=== PATIENT | female | born 1995 | race Caucasian/White ===

== ENCOUNTER 2017-04-07 19:24 | Inpatient (IN) | payer BC, OTHER ==
[2017-04-07] MEDS ORDERED: Carboprost Tromethamine 250 MCG/1 ML Amp IM PRN (20:27)
[2017-04-07] MEDS ORDERED: Sodium Chloride 0.9% 10 ML Syringe FLUSH PRN (20:27)
[2017-04-07] MEDS ORDERED: Misoprostol 200 MCG Tab PO PRN (20:27)
[2017-04-07] MEDS ORDERED: Methylergonovine 0.2 MG/1 ML Amp IM PRN (20:27)
[2017-04-07] MEDS ORDERED: Nalbuphine 10 MG/1 ML Vial IVPUSH PRN (20:27)
[2017-04-07] MEDS ORDERED: Sodium Chloride 0.9% 2.5 ML Syringe FLUSH PRN (20:27)
[2017-04-07] MEDS ORDERED: Water For Irrigation,Sterile 1,000 ML Container IRR PRN (20:27)
[2017-04-07] MEDS ORDERED: Lidocaine 1% 50 ML MDV INJECT PRN (20:27)
[2017-04-07] MEDS ORDERED: Oxytocin/Lactated Ringers 30 UNIT/500 ML BAG IV SCH (20:30)
[2017-04-07] MEDS ORDERED: Ampicillin 2 GM in Sodium Chloride 0.9% 100 ML IV ONE (21:00)
[2017-04-07] MEDS: Lactated Ringers 1,000 ML IV SCH (21:17)
[2017-04-07] MEDS ORDERED: Misoprostol 25 MCG (1/4 of 100 MCG) Tab VAG PRN (22:24)
[2017-04-07] MEDS ORDERED: Terbutaline 1 MG/ML SDV SUBCUT PRN (22:24)
[2017-04-07] MEDS ORDERED: Misoprostol 25 MCG (1/4 of 100 MCG) Tab VAG SCH (22:30)
[2017-04-08] MEDS: Ampicillin 1 GM in Sodium Chloride 0.9% 50 ML IV SCH ×4 (00:48→13:09)
[2017-04-08] MEDS: Butorphanol 1 MG/ML SDV IVPUSH PRN ×2 (05:19→07:40)
[2017-04-08] MEDS: Lactated Ringers 1,000 ML IV SCH ×3 (08:06→10:42)
[2017-04-08] MEDS ORDERED: fentaNYL 100 MCG/2 ML SDV ONE (09:34)
[2017-04-08] MEDS ORDERED: Ropivacaine 0.2% 2 MG/ML 20 ML SDV ONE (09:35)
--- NOTE | 2017-04-08 10:30 | PCM.PREANE ---
Preanesthetic Assessment - Anesthesia/Transfusion/Family Hx Anesthesia History: Prior Anesthesia Without Reaction Family History of Anesthesia Reaction: No Transfusion History: No Prior Transfusion(s) - Review of Systems General: No Symptoms Pulmonary: No Symptoms Cardiovascular: No Symptoms Gastrointestinal: No symptoms Neurological: No Symptoms Other: Reports: None - Physical Assessment NPO Status Date: 04/08/17 NPO Status Time: 10:20 (cl liquids) Height: 1.7 m Weight: 82.554 kg ASA Class: 2 Mental Status: Alert & Oriented x3 Airway Class: Mallampati = 2 Dentition: Reports: Normal Dentition Thyro-Mental Finger Breadths: 3 Mouth Opening Finger Breadths: 3 ROM/Head Extension: Full Lungs: Clear to auscultation, Normal respiratory effort Cardiovascular: Regular Rate, Regular Rhythm - Lab Values: Laboratory Last Values WBC 11.13 K/uL (4.0-11.0) H 04/07/17 20:41 RBC 3.76 M/uL (4.30-5.90) L 04/07/17 20:41 Hgb 11.8 g/dL (12.0-16.0) L 04/07/17 20:41 Hct 35.7 % (36.0-46.0) L 04/07/17 20:41 MCV 94.9 fL (80.0-98.0) 04/07/17 20:41 MCH 31.4 pg (27.0-32.0) 04/07/17 20:41 MCHC 33.1 g/dL (31.0-37.0) 04/07/17 20:41 RDW Std Deviation 48.5 fl (28.0-62.0) 04/07/17 20:41 RDW Coeff of West 14 % (11.0-15.0) 04/07/17 20:41 Plt Count 176 K/uL (150-400) 04/07/17 20:41 MPV 11.00 fL (7.40-12.00) 04/07/17 20:41 Nucleated RBC % 0.0 /100WBC 04/07/17 20:41 Nucleated RBCs # 0 K/uL 04/07/17 20:41 Membrane Rupture POSITIVE 04/07/17 20:00 Blood Type B POSITIVE 04/07/17 20:41 Antibody Screen NEGATIVE 04/07/17 20:41 - Allergies Allergies/Adverse Reactions: Allergies Allergy/AdvReac Type Severity Reaction Status Date / Time lactose Allergy Indigestion Verified 04/07/17 20:24 - Blood Blood Available: Yes Product(s) Available: PRBC - Acknowledgements Anesthesia Type Planned: Epidural Pt an Appropriate Candidate for the Planned Anesthesia: Yes Alternatives and Risks of Anesthesia Discussed w Pt/Guardian: Yes Pt/Guardian Understands and Agrees with Anesthesia Plan: Yes PreAnesthesia Questionnaire MINE DEPUTY History: Reports: - Past Surgical History HEENT Surgical History: Reports: Oral Surgery, Other (See Below) Other HEENT Surgeries/Procedures: widom teeth extraction - SUBSTANCE USE Smoking Status *Q: Never Smoker Recreational Drug Use History: No - HOME MEDS Home Medications: Home Meds PNV95/Ferrous Fumarate/FA [ Tablet] 04/07/17 [History] - CURRENT (IN HOUSE) MEDS Current Meds: Current Medications Butorphanol Tartrate (Stadol) 1 mg IVPUSH Q1H PRN PRN Reason: Pain Last Admin: 04/08/17 07:40 Dose: 1 mg Carboprost Tromethamine (Hemabate Ds) 250 mcg IM ASDIRECTED PRN PRN Reason: Post Hemorrhage Lactated Ringer's (Ringers, Lactated) 1,000 mls @ 150 mls/hr IV ASDIRECTED ALEIDA Last Infusion: 04/08/17 08:42 Dose: 150 mls/hr Oxytocin/Lactated Ringer's (Pitocin In Lr 30 Units/500 Ml) 30 unit in 500 mls @ 2 mls/hr IV TITRATE ALEIDA; 2 MUNITS/MIN PRN Reason: Protocol Stop: 04/08/17 20:29 Ampicillin Sodium 1 gm/ Sodium (Chloride) 50 mls @ 100 mls/hr IV Q4H ALEIDA Last Admin: 04/08/17 08:52 Dose: 100 mls/hr Lidocaine HCl (Xylocaine 1%) 50 ml INJECT .ONCE PRN PRN Reason: Laceration repair Methylergonovine Maleate (Methergine) 0.2 mg IM ASDIRECTED PRN PRN Reason: Post Hemorrhage Misoprostol (Cytotec) 200 mcg PO .ONCE PRN PRN Reason: Post Hemorrhage Misoprostol (Cytotec) 25 mcg VAG .ONCE ALEIDA Last Admin: 04/07/17 22:59 Dose: 25 mcg Misoprostol (Cytotec) 25 mcg VAG Q4H PRN PRN Reason: Cervical Ripening Stop: 04/09/17 02:25 Last Admin: 04/08/17 03:18 Dose: 25 mcg Sodium Chloride (Saline Flush) 10 ml FLUSH ASDIRECTED PRN PRN Reason: Keep Vein Open Sodium Chloride (Saline Flush) 2.5 ml FLUSH ASDIRECTED PRN PRN Reason: Keep Vein Open Sterile Water (Sterile Water For Irrigation) 1,000 ml IRR ASDIRECTED PRN PRN Reason: delivery Terbutaline Sulfate (Brethine) 0.25 mg SUBCUT ASDIRECTED PRN PRN Reason: Tacysystole Discontinued Medications Fentanyl (Sublimaze) Confirm Administered Dose 100 mcg .ROUTE .STK-MED ONE Stop: 04/08/17 09:35 Ampicillin Sodium 2 gm/ Sodium (Chloride) 100 mls @ 200 mls/hr IV ONETIME ONE Stop: 04/07/17 21:29 Last Admin: 04/07/17 21:28 Dose: 200 mls/hr Ropivacaine/Fentanyl/NS (Fentanyl 2 Mcg-Ropiv 0.2%-Ns) Confirm Administered Dose 100 mls @ as directed .ROUTE .STK-MED ONE Stop: 04/08/17 09:36 Nalbuphine HCl (Nubain) 10 mg IVPUSH Q1H PRN PRN Reason: Pain (severe 7-10) Stop: 04/07/17 22:28 Ropivacaine (Naropin 0.2%) Confirm Administered Dose 20 ml .ROUTE .STK-MED ONE Stop: 04/08/17 09:36 - Free Text/Narrative Note: Start date: 04/07/17 Start time: 935 935:Called for labor epidural. Risks/benefits discussed. Monitors in place. Consent signed, PMH, labs reviewed. Rating pain at "10/10". VSS Category 1 strip. Assessment completed. Time out performed. 0943: Sitting position. Sterile prep/drape. 1% lidocaine intradermal wheal. 0946: 19 g tuohy needle advanced in L4-5 to 6 cm using glass NILESH syringe with 3 ml sterile water. Neg heme/CSF/parasthesia. Catheter advanced to 20 cm. Secured. 0947: Test dose of 3 ml 1.5% lidocaine with 1:200,000 epi. 0954: Semi fowlers with JOON. Test dose negative. Bolus dose of 100 mcg fentanly followed by 4 ml 0.2% ropivacaine and 6 ml 0.2% ropivacaine given over 5 minutes. 0959: Continuous infusion set to pump at rate of 8 ml/hr with [employer] MACH[employer]IST bolus of 5 ml every 15 minutes set to pump and explained to patient. Medication: 100 ml 0.2% ropivacaine with 2 mcg/ ml fentanyl. VS and FHR monitored on OB unit. See OB TraceVue for vital sign documentation. Pain level at completion: "Pressure with contractions only" End date: 04/07/17 End time: 0959
[2017-04-08] MEDS ORDERED: Benzocaine/Menthol 20%-0.5% Spray 78 GM Cannister TOP PRN (14:13)
[2017-04-08] MEDS ORDERED: Lanolin 100% Cream 7 GM Tube TOP PRN (14:13)
[2017-04-08] MEDS ORDERED: Docusate Sodium 100 MG Cap PO PRN (14:13)
[2017-04-08] MEDS ORDERED: Bisacodyl 10 MG Supp RECTAL PRN (14:13)
[2017-04-08] MEDS ORDERED: Witch Hazel Medicated Pads 40/Jar TOP PRN (14:13)
[2017-04-08] MEDS ORDERED: oxyCODONE 5 MG Tab PO PRN (14:13)
[2017-04-08] MEDS ORDERED: Methylergonovine 0.2 MG/1 ML Amp IM PRN (14:13)
[2017-04-08] MEDS: Ibuprofen 800 MG Tab PO PRN ×2 (16:09→22:55)
--- NOTE | 2017-04-08 20:14 | PCM48HPAN ---
Post Anesthesia Note - EVALUATION WITHIN 48HRS OF ANESTHETIC Vital Signs in Normal Range: Yes Patient Participated in Evaluation: Yes Respiratory Function Stable: Yes Airway Patent: Yes Cardiovascular Function Stable: Yes Hydration Status Stable: Yes Pain Control Satisfactory: Yes Nausea and Vomiting Control Satisfactory: Yes Mental Status Recovered: Yes
[2017-04-09] MEDS ORDERED: Acetaminophen 500 MG Tab PO PRN (01:14)
--- NOTE | 2017-04-09 06:11 | OR ---
SURGEON: Anya Lang M.D. DATE OF PROCEDURE: PREOPERATIVE DIAGNOSIS: Thirty nine and 1/7th week intrauterine with premature rupture of membranes. POSTOPERATIVE DIAGNOSIS: Thirty nine and 1/7th week intrauterine with premature rupture of membranes. PROCEDURE: 1. Cytotec and Pitocin induction of labor, term spontaneous vaginal delivery. 2. Repair of second-degree laceration. ANESTHESIA: Epidural. ESTIMATED BLOOD LOSS: Less than 300 mL. FINDINGS: Live born female, score 9 and 9. Weight is pending at the time of dictation. Placenta was spontaneous, Schultze intact with 3 vessels. Upon inspection of pelvis and perineum, there were no periurethral, vaginal sidewall, cervical, or rectal lacerations. There was a second-degree perineal laceration that was repaired. COMPLICATIONS: None known. DISPOSITION: Mother and baby are in LDRP in good condition. BRIEF INDICATION: This is 22-year-old female, she is G1, P0. She presents at 39 weeks' gestation with spontaneous rupture of membranes. She received Cytotec vaginally. She was known to be group B strep positive. She was started on ampicillin 6 hours after her last dose of Cytotec. She was 4 cm, 90%, she received an epidural for pain control. She had a fore-bag which was ruptured with clear fluid noted. She was then started on Pitocin. After the epidural was in place, she had a maximum of 4 milliunits per minute of Pitocin. She progressed to complete with category 1 heart tone throughout labor. DESCRIPTION OF PROCEDURE: With the patient in dorsal lithotomy position, the patient pushed over 1 hour time period to a 5+ station, at which time the head was delivered spontaneously and atraumatically over the perineum with support with subsequent delivery of the infant's shoulders and body without any difficulty. The was bulb suctioned by nose and mouth. The infant was handed to the mother in the presence of the nurse attending delivery. The was a liveborn female, score 9 and 9, weight is pending at the time of dictation. After the cord had ceased to pulsate, it was doubly clamped and cut. Cord blood was collected for cord ABGs as well as routine cord blood sampling. Pitocin was initiated after delivery of the placenta of the infant to assist with delivery of the placenta which was delivered spontaneously Schultze intact with 3 vessels. Upon inspection the pelvis and perineum, there were no periurethral, vaginal sidewall, cervical, or rectal lacerations. There was a second-degree perineal laceration, this was repaired using a running locked suture of 3-0 Caprosyn for the vaginal mucosa, a deep running suture of the same for the perineal tissue and a subcuticular suture of the same for the skin. Final sponge, needle, and instrument count were correct. There were no known complications. Mother and are in LDRP in good condition. DEBBIE MCADAMS /[id number]
[2017-04-09] MEDS: Ibuprofen 800 MG Tab PO PRN (07:51)
--- NOTE | 2017-04-09 08:18 | PCM.PNPP ---
<Inez Jauregui - Last Filed: 04/09/17 08:15> - General Info Date of Service: 04/09/17 Functional Status: Reports: pain controlled, tolerating diet, ambulating, urinating - Review of Systems General: Denies: Fever, Weakness, Fatigue Pulmonary: Denies: shortness of breath, pleuritic chest pain, cough Cardiovascular: Denies: Chest Pain, Palpitations, Dyspnea on Exertion Gastrointestinal: Denies: Abdominal pain Genitourinary: Denies: dysuria Psychiatric: Reports: no symptoms - General Info Date of Service: 04/09/17 - Patient Data Vital Signs - most recent: Last Vital Signs Temp 36.4 C 04/09/17 04:15 Pulse 79 04/09/17 04:15 Resp 15 04/09/17 04:15 BP 102/53 L 04/09/17 04:15 Pulse Ox 97 04/09/17 04:15 Weight - most recent: 82.554 kg Lab Results - last 24 hrs: Laboratory Results - last 24 hr 04/09/17 Range/Units 05:11 Hgb 9.1 L (12.0-16.0) g/dL Hct 27.1 L (36.0-46.0) % Med Orders - Current: Current Medications Acetaminophen (Tylenol Extra Strength) 1,000 mg PO Q4H PRN PRN Reason: Pain Last Admin: 04/09/17 03:07 Dose: 1,000 mg Benzocaine/Menthol (Dermoplast Pain Relief 20%-0.5% [place]) 78 gm TOP ASDIRECTED PRN PRN Reason: Perineal Comfort Measure Last Admin: 04/08/17 16:09 Dose: 1 canister Bisacodyl (Dulcolax) 10 mg RECTAL .ONCE PRN PRN Reason: Constipation Docusate Sodium (Colace) 100 mg PO BID PRN PRN Reason: Constipation Last Admin: 04/08/17 16:08 Dose: 100 mg Emollient Ointment (Lansinoh Hpa) 0 gm TOP ASDIRECTED PRN PRN Reason: Sore Nipples Ibuprofen (Motrin) 800 mg PO Q6H PRN PRN Reason: Pain Last Admin: 04/09/17 07:51 Dose: 800 mg Methylergonovine Maleate (Methergine) 0.2 mg IM .ONCE PRN PRN Reason: Excessive Vaginal Bleeding Oxycodone HCl (Oxycodone) 5 mg PO Q2H PRN PRN Reason: Pain Witch Venessa (Tucks) 1 pad TOP ASDIRECTED PRN PRN Reason: comfort care Last Admin: 04/08/17 21:43 Dose: 1 container Discontinued Medications Butorphanol Tartrate (Stadol) 1 mg IVPUSH Q1H PRN PRN Reason: Pain Last Admin: 04/08/17 07:40 Dose: 1 mg Carboprost Tromethamine (Hemabate Ds) 250 mcg IM ASDIRECTED PRN PRN Reason: Post Hemorrhage Fentanyl (Sublimaze) Confirm Administered Dose 100 mcg .ROUTE .STK-MED ONE Stop: 04/08/17 09:35 Last Admin: 04/08/17 17:51 Dose: Not Given Lactated Ringer's (Ringers, Lactated) 1,000 mls @ 150 mls/hr IV ASDIRECTED ALEIDA Last Admin: 04/08/17 10:42 Dose: 150 mls/hr Oxytocin/Lactated Ringer's (Pitocin In Lr 30 Units/500 Ml) 30 unit in 500 mls @ 2 mls/hr IV TITRATE ALEIDA; 2 MUNITS/MIN PRN Reason: Protocol Stop: 04/08/17 20:29 Last Titration: 04/08/17 11:44 Dose: 4 munits/min, 4 mls/hr Ampicillin Sodium 2 gm/ Sodium (Chloride) 100 mls @ 200 mls/hr IV ONETIME ONE Stop: 04/07/17 21:29 Last Admin: 04/07/17 21:28 Dose: 200 mls/hr Ampicillin Sodium 1 gm/ Sodium (Chloride) 50 mls @ 100 mls/hr IV Q4H [facility] Last Admin: 04/08/17 13:09 Dose: 100 mls/hr Ropivacaine/Fentanyl/NS (Fentanyl 2 Mcg-Ropiv 0.2%-Ns) Confirm Administered Dose 100 mls @ as directed .ROUTE .STK-MED ONE Stop: 04/08/17 09:36 Last Admin: 04/08/17 17:54 Dose: Not Given Lidocaine HCl (Xylocaine 1%) 50 ml INJECT .ONCE PRN PRN Reason: Laceration repair Methylergonovine Maleate (Methergine) 0.2 mg IM ASDIRECTED PRN PRN Reason: Post Hemorrhage Misoprostol (Cytotec) 200 mcg PO .ONCE PRN PRN Reason: Post Hemorrhage Misoprostol (Cytotec) 25 mcg VAG .ONCE ALEIDA Last Admin: 04/07/17 22:59 Dose: 25 mcg Misoprostol (Cytotec) 25 mcg VAG Q4H PRN PRN Reason: Cervical Ripening Stop: 04/09/17 02:25 Last Admin: 04/08/17 03:18 Dose: 25 mcg Nalbuphine HCl (Nubain) 10 mg IVPUSH Q1H PRN PRN Reason: Pain (severe 7-10) Stop: 04/07/17 22:28 Ropivacaine (Naropin 0.2%) Confirm Administered Dose 20 ml .ROUTE .STK-MED ONE Stop: 04/08/17 09:36 Last Admin: 04/08/17 17:55 Dose: Not Given Sodium Chloride (Saline Flush) 10 ml FLUSH ASDIRECTED PRN PRN Reason: Keep Vein Open Sodium Chloride (Saline Flush) 2.5 ml FLUSH ASDIRECTED PRN PRN Reason: Keep Vein Open Sterile Water (Sterile Water For Irrigation) 1,000 ml IRR ASDIRECTED PRN PRN Reason: delivery Terbutaline Sulfate (Brethine) 0.25 mg SUBCUT ASDIRECTED PRN PRN Reason: Tacysystole - Interaction Infant Disposition, : in Room with Family Infant Interaction: Holding Infant Infant Feeding: Attempted ; Nursed Fair/Poor Support Person: - Recovery Exam Fundal Tone: Firm Fundal Level: 1 Fingerbreadths Below Umbilicus Fundal Placement: Midline Lochia Amount: Scant Lochia Color: Rubra/Red Perineum Description: Other (see below) Other Perinuem Description: 2nd degree laceration Episiotomy/Laceration: Approximated Bladder Status: Voiding Urinary Elimination: Voided - Exam General: alert, oriented Lungs: Clear to auscultation, Normal respiratory effort Cardiovascular: Regular Rate, Regular Rhythm Abdomen: bowel sounds present, soft, no tenderness, no distension Extremities: edema (trace) Psy/Mental Status: alert, normal affect, normal mood - Problem List & Annotations (1) Vaginal delivery SNOMED Code(s): 097955404 Code(s): O80 - ENCOUNTER FOR FULL-TERM UNCOMPLICATED DELIVERY Status: Acute Current Visit: Yes - Problem List Review Problem List Initiated/Reviewed/Updated: Yes - Assessment Assessment:: PPD #1 from . Minimal pain and lochia. Will work on breast feeding today. Discharge this afternoon. - Plan Plan:: Discharge home today. Nothing in the vagina for 6 weeks. Continue PNC while breast feeding. Can use OTC ibuprofen/tylenol as needed for pain. No lifting greater than 10lbs a day. Instructed patient to call if she develops fever greater than 101 or bleeding through a large pad an hour. F/U with [facility] in 6 weeks. <Anya Lang - Last Filed: 04/09/17 08:52> - Patient Data Vital Signs - most recent: Last Vital Signs Temp 36.4 C 04/09/17 04:15 Pulse 79 04/09/17 04:15 Resp 15 04/09/17 04:15 BP 102/53 L 04/09/17 04:15 Pulse Ox 97 04/09/17 04:15 Lab Results - last 24 hrs: Laboratory Results - last 24 hr 04/09/17 Range/Units 05:11 Hgb 9.1 L (12.0-16.0) g/dL Hct 27.1 L (36.0-46.0) % Med Orders - Current: Current Medications Acetaminophen (Tylenol Extra Strength) 1,000 mg PO Q4H PRN PRN Reason: Pain Last Admin: 04/09/17 03:07 Dose: 1,000 mg Benzocaine/Menthol (Dermoplast Pain Relief 20%-0.5% [place]) 78 gm TOP ASDIRECTED PRN PRN Reason: Perineal Comfort Measure Last Admin: 04/08/17 16:09 Dose: 1 canister Bisacodyl (Dulcolax) 10 mg RECTAL .ONCE PRN PRN Reason: Constipation Docusate Sodium (Colace) 100 mg PO BID PRN PRN Reason: Constipation Last Admin: 04/08/17 16:08 Dose: 100 mg Emollient Ointment (Lansinoh Hpa) 0 gm TOP ASDIRECTED PRN PRN Reason: Sore Nipples Ibuprofen (Motrin) 800 mg PO Q6H PRN PRN Reason: Pain Last Admin: 04/09/17 07:51 Dose: 800 mg Methylergonovine Maleate (Methergine) 0.2 mg IM .ONCE PRN PRN Reason: Excessive Vaginal Bleeding Oxycodone HCl (Oxycodone) 5 mg PO Q2H PRN PRN Reason: Pain Witch Venessa (Tucks) 1 pad TOP ASDIRECTED PRN PRN Reason: comfort care Last Admin: 04/08/17 21:43 Dose: 1 container Discontinued Medications Butorphanol Tartrate (Stadol) 1 mg IVPUSH Q1H PRN PRN Reason: Pain Last Admin: 04/08/17 07:40 Dose: 1 mg Carboprost Tromethamine (Hemabate Ds) 250 mcg IM ASDIRECTED PRN PRN Reason: Post Hemorrhage Fentanyl (Sublimaze) Confirm Administered Dose 100 mcg .ROUTE .[employer]-MED ONE Stop: 04/08/17 09:35 Last Admin: 04/08/17 17:51 Dose: Not Given Lactated Ringer's (Ringers, Lactated) 1,000 mls @ 150 mls/hr IV ASDIRECTED ALEIDA Last Admin: 04/08/17 10:42 Dose: 150 mls/hr Oxytocin/Lactated Ringer's (Pitocin In Lr 30 Units/500 Ml) 30 unit in 500 mls @ 2 mls/hr IV TITRATE ALEIDA; 2 MUNITS/MIN PRN Reason: Protocol Stop: 04/08/17 20:29 Last Titration: 04/08/17 11:44 Dose: 4 munits/min, 4 mls/hr Ampicillin Sodium 2 gm/ Sodium (Chloride) 100 mls @ 200 mls/hr IV ONETIME ONE Stop: 04/07/17 21:29 Last Admin: 04/07/17 21:28 Dose: 200 mls/hr Ampicillin Sodium 1 gm/ Sodium (Chloride) 50 mls @ 100 mls/hr IV Q4H ALEIDA Last Admin: 04/08/17 13:09 Dose: 100 mls/hr Ropivacaine/Fentanyl/NS (Fentanyl 2 Mcg-Ropiv 0.2%-Ns) Confirm Administered Dose 100 mls @ as directed .ROUTE .STK-MED ONE Stop: 04/08/17 09:36 Last Admin: 04/08/17 17:54 Dose: Not Given Lidocaine HCl (Xylocaine 1%) 50 ml INJECT .ONCE PRN PRN Reason: Laceration repair Methylergonovine Maleate (Methergine) 0.2 mg IM ASDIRECTED PRN PRN Reason: Post Hemorrhage Misoprostol (Cytotec) 200 mcg PO .ONCE PRN PRN Reason: Post Hemorrhage Misoprostol (Cytotec) 25 mcg VAG .ONCE ALEIDA Last Admin: 04/07/17 22:59 Dose: 25 mcg Misoprostol (Cytotec) 25 mcg VAG Q4H PRN PRN Reason: Cervical Ripening Stop: 04/09/17 02:25 Last Admin: 04/08/17 03:18 Dose: 25 mcg Nalbuphine HCl (Nubain) 10 mg IVPUSH Q1H PRN PRN Reason: Pain (severe 7-10) Stop: 04/07/17 22:28 Ropivacaine (Naropin 0.2%) Confirm Administered Dose 20 ml .ROUTE .STK-MED ONE Stop: 04/08/17 09:36 Last Admin: 04/08/17 17:55 Dose: Not Given Sodium Chloride (Saline Flush) 10 ml FLUSH ASDIRECTED PRN PRN Reason: Keep Vein Open Sodium Chloride (Saline Flush) 2.5 ml FLUSH ASDIRECTED PRN PRN Reason: Keep Vein Open Sterile Water (Sterile Water For Irrigation) 1,000 ml IRR ASDIRECTED PRN PRN Reason: delivery Terbutaline Sulfate (Brethine) 0.25 mg SUBCUT ASDIRECTED PRN PRN Reason: Tacysystole - Problem List Review Problem List Initiated/Reviewed/Updated: Yes - My Orders Last 24 Hours: My Active Orders 04/08/17 14:13 Patient Status [ADT] Routine May Shower [RC] ASDIRECTED Up ad Sendy [RC] ASDIRECTED Vital Signs [RC] PER UNIT ROUTINE Benzocaine/Menthol [Dermoplast Pain Relief 20%-0.5% [place]] 78 gm TOP ASDIRECTED PRN Bisacodyl [Dulcolax] 10 mg RECTAL .ONCE PRN Docusate Sodium [Colace] 100 mg PO BID PRN Ibuprofen [Motrin] 800 mg PO Q6H PRN Lanolin [Lansinoh HPA] See Dose Instructions TOP ASDIRECTED PRN Methylergonovine [Methergine] 0.2 mg IM .ONCE PRN Witch Venessa [Tucks] 1 pad TOP ASDIRECTED PRN oxyCODONE 5 mg PO Q2H PRN Assess Lochia [WOMSER] Per Unit Routine Assess Uterine Involution [WOMSER] Per Unit Routine Peripheral IV Discontinue [OM.PC] Routine Resuscitation Status Routine 04/08/17 14:14 Perineal Care [OM.PC] Per Unit Routine 04/08/17 Dinner Regular Diet [DIET] - Plan Plan:: Agree with above
[2017-04-09 09:37] VITALS: BP 97/55
== END 2017-04-09 16:30 | disposition home or self-care (01) | DRG 560 ==
LOC: MW.OBCHECK 19:24 → MW.OB 19:45 → MW.OBCHECK 20:09 → MW.OB 20:09 → OBSVTOIN 04-08 13:50 → MW.OB 04-08 17:17
PROVIDERS: ADMIT Obstetrics & Gynecology; ATTEND Obstetrics & Gynecology
PROC: 10E0XZZ Delivery of Products of Conception, External Approach (ICD-10-PCS; principal; 2017-04-08)
PROC: 0KQM0ZZ Repair Perineum Muscle, Open Approach (ICD-10-PCS; 2017-04-08)
PROC: 3E0P7GC Introduction of Other Therapeutic Substance into Female Reproductive, Via Natural or Artificial Opening (ICD-10-PCS; 2017-04-08)
PROC: 3E033VJ Introduction of Other Hormone into Peripheral Vein, Percutaneous Approach (ICD-10-PCS; 2017-04-08)
DX: O42.02 Full-term premature rupture of membranes, onset of labor within 24 hours of rupture (principal); O70.1 Second degree perineal laceration during delivery; Z3A.39 39 weeks gestation of pregnancy; Z37.0 Single live birth; Z22.330 Carrier of Group B streptococcus
CPT/HCPCS: 36415; 59409; 84112; 85014; 85018; 85027; 86850; 86900; 86901; A9270-GY; J0290; J0595; J2795; J3010; J7030; J7050; J7120

== ENCOUNTER 2018-04-11 04:22 | Emergency (ER) | payer BC, OTHER ==
--- NOTE | 2018-04-11 04:31 | EDM.PDOC ---
ED HPI GENERAL MEDICAL PROBLEM - General Stated Complaint: UTI Time Seen by Provider: 04/11/18 04:28 - History of Present Illness INITIAL COMMENTS - FREE TEXT/NARRATIVE: HISTORY AND PHYSICAL: History of present illness: The patient is a 23-year-old female who presents with complaints of 4-5 hours of frequency of urination and dysuria without hematuria abdominal pain or flank pain. The patient states she is on oral control pills and does not have irregular bleeding or vaginal spotting and has no history of kidney stones but has had 3 UTIs in the past. She has not had a UTI for 2 years. She states she does drink a lot of water and has not had fevers chills nausea vomiting or diarrhea. She has no other systemic complaints. The patient is currently breast- feeding her 1-year-old child Review of systems: As per history of present illness and below otherwise all systems reviewed and negative. Past medical history: As per history of present illness and as reviewed below otherwise noncontributory. Surgical history: As per history of present illness and as reviewed below otherwise noncontributory. Social history: No reported history of drug or alcohol abuse. Family history: As per history of present illness and as reviewed below otherwise noncontributory. Physical exam: General: Well-developed well-nourished female who is nontoxic and vital signs have been reviewed by me HEENT: Atraumatic, normocephalic, negative for conjunctival pallor or scleral icterus, mucous membranes moist, throat clear, neck supple, nontender, trachea midline. Lungs: Clear to auscultation, breath sounds equal bilaterally, chest nontender. Heart: S1S2, regular rate and rhythm no overt murmurs Abdomen: Soft, nondistended, nontender. NABS Negative for costovertebral tenderness. Pelvis: Deferred Genitourinary: Deferred. Rectal: Deferred. Extremities: Atraumatic, negative for cords or calf pain. Neurovascular unremarkable. Neuro: Awake, alert, oriented. Cranial nerves II through XII unremarkable. Cerebellum unremarkable. Motor and sensory unremarkable throughout. Exam nonfocal. Diagnostics: UA urine culture UCG Therapeutics: [] Impression: Dysuria/UTI Definitive disposition and diagnosis as appropriate pending reevaluation and review of above. 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 ED EXAM, GENERAL - Physical Exam Exam: See Below (See dictation) Course - Vital Signs Last Recorded V/S: Last Vital Signs Temp 35.8 C 04/11/18 04:31 Pulse 66 04/11/18 04:31 Resp 18 04/11/18 04:31 BP 112/70 04/11/18 04:31 Pulse Ox 97 04/11/18 04:31 - Orders/Labs/Meds Orders: Active Orders 24 hr Category Date Time Status CULTURE URINE [RM] Stat Lab 04/11/18 04:35 Ordered HCG QUALITATIVE,URINE [URCHEM] Stat Lab 04/11/18 04:35 Ordered UA W/MICROSCOPIC [URIN] Stat Lab 04/11/18 04:35 Ordered Labs: Laboratory Tests 04/11/18 04/11/18 Range/Units 04:35 04:35 Urine Color YELLOW Urine Appearance HAZY Urine pH 5.5 (5.0-8.0) Ur Specific [place] <= 1.005 (1.001-1.035) Urine Protein NEGATIVE (NEGATIVE) mg/dL Urine Glucose (UA) NEGATIVE (NEGATIVE) mg/dL Urine Ketones NEGATIVE (NEGATIVE) mg/dL Urine Occult Blood MODERATE (NEGATIVE) Urine Nitrite NEGATIVE (NEGATIVE) Urine Bilirubin NEGATIVE (NEGATIVE) Urine Urobilinogen 0.2 (<2.0) EU/dL Ur Leukocyte Esterase MODERATE (NEGATIVE) Urine RBC 2-4 (0-2/HPF) Urine WBC 20-25 (0-5/HPF) Ur Epithelial Cells FEW (NONE-FEW) Urine Bacteria FEW (NEGATIVE) Urine HCG, Qual NEGATIVE (NEGATIVE) Departure - Departure Time of Disposition: 05:05 Disposition: Home, Self-Care 01 Condition: Good Clinical Impression: UTI, Urinary tract infectious disease - Discharge Information Referrals: Laura Du MD [Primary Care Provider] - Additional Instructions: The following information is given to patients seen in the emergency department who are being discharged to home. This information is to outline your options for follow-up care. We provide all patients seen in our emergency department with a follow-up referral. The need for follow-up, as well as the timing and circumstances, are variable depending upon the specifics of your emergency department visit. If you don't have a primary care physician on staff, we will provide you with a referral. We always advise you to contact your personal physician following an emergency department visit to inform them of the circumstance of the visit and for follow-up with them and/or the need for any referrals to a consulting specialist. The emergency department will also refer you to a specialist when appropriate. This referral assures that you have the opportunity for followup care with a specialist. All of these measure are taken in an effort to provide you with optimal care, which includes your followup. Under all circumstances we always encourage you to contact your private physician who remains a resource for coordinating your care. When calling for followup care, please make the office aware that this follow-up is from your recent emergency room visit. If for any reason you are refused follow-up, please contact the [facility] emergency department at and ask to speak to the emergency department charge nurse. [facility]- [facility] Medicine [facility] Family [address] [id number] Push hydration and please call and schedule a follow-up appointment in the clinic in the next few days. Return to ER as needed and as discussed. You have been given a prescription for Keflex from [facility] which she need to take until it is finished. - My Orders Last 24 Hours: My Active Orders 04/11/18 04:35 CULTURE URINE [RM] Stat HCG QUALITATIVE,URINE [URCHEM] Stat UA W/MICROSCOPIC [URIN] Stat - Assessment/Plan Last 24 Hours: My Active Orders 04/11/18 04:35 CULTURE URINE [RM] Stat HCG QUALITATIVE,URINE [URCHEM] Stat UA W/MICROSCOPIC [URIN] Stat
[2018-04-11 04:34] VITALS: BP 112/70
== END 2018-04-11 05:19 | disposition home or self-care (01) ==
LOC: MW.ED 04:22
DX: N39.0 Urinary tract infection, site not specified (principal); Z91.011 Allergy to milk products
CPT/HCPCS: 81001; 81025; 87086; 87088; 87186; 99283

== ENCOUNTER 2020-04-23 03:52 | Inpatient (IN) | payer OTHER ==
[2020-04-23] MEDS ORDERED: Lidocaine 1% 50 ML MDV INJECT PRN (05:19)
[2020-04-23] MEDS ORDERED: Sodium Chloride 0.9% 10 ML SDV IV PRN (05:19)
[2020-04-23] MEDS ORDERED: Water For Irrigation,Sterile 1,000 ML Container IRR PRN (05:19)
[2020-04-23] MEDS ORDERED: Methylergonovine 0.2 MG/1 ML Amp IM PRN (05:19)
[2020-04-23] MEDS ORDERED: Sodium Chloride 0.9% 10 ML Syringe FLUSH PRN (05:19)
[2020-04-23] MEDS ORDERED: Tranexamic Acid 1,000 MG in Sodium Chloride 0.9% 100 ML IV PRN (05:19)
[2020-04-23] MEDS ORDERED: Carboprost Tromethamine 250 MCG/1 ML Amp IM PRN (05:19)
[2020-04-23] MEDS ORDERED: Sodium Chloride 0.9% 2.5 ML Syringe FLUSH PRN (05:19)
[2020-04-23] MEDS ORDERED: Butorphanol 1 MG/ML SDV IVPUSH PRN (05:19)
[2020-04-23] MEDS ORDERED: Misoprostol 200 MCG Tab PO PRN (05:19)
[2020-04-23] MEDS ORDERED: Oxytocin/0.9 % Sodium Chloride 30 UNIT/500 ML BAG IV SCH (05:30)
[2020-04-23] MEDS ORDERED: fentaNYL 100 MCG/2 ML SDV ONE ×2 (06:23→07:54)
[2020-04-23] MEDS ORDERED: Ropivacaine HCl/PF 100 ML ONE (06:24)
[2020-04-23] MEDS: Lactated Ringers 1,000 ML IV SCH ×2 (06:25→07:17)
--- NOTE | 2020-04-23 06:49 | PCM.PREANE ---
Preanesthetic Assessment - Anesthesia/Transfusion/Family Hx Anesthesia History: No Prior Anesthesia Family History of Anesthesia Reaction: No Transfusion History: No Prior Transfusion(s) - Physical Assessment NPO Status Date: 04/23/20 NPO Status Time: 00:05 Height: 1.7 m Weight: 88.451 kg ASA Class: 2 - Lab Values: Laboratory Last Values WBC 12.66 K/uL (4.0-11.0) H 04/23/20 04:35 RBC 4.07 M/uL (4.30-5.90) L 04/23/20 04:35 Hgb 12.8 g/dL (12.0-16.0) 04/23/20 04:35 Hct 38.7 % (36.0-46.0) 04/23/20 04:35 MCV 95.1 fL (80.0-98.0) 04/23/20 04:35 MCH 31.4 pg (27.0-32.0) 04/23/20 04:35 MCHC 33.1 g/dL (31.0-37.0) 04/23/20 04:35 RDW Std Deviation 48.0 fl (28.0-62.0) 04/23/20 04:35 RDW Coeff of [place] 14 % (11.0-15.0) 04/23/20 04:35 Plt Count 185 K/uL (150-400) 04/23/20 04:35 MPV 10.60 fL (7.40-12.00) 04/23/20 04:35 Nucleated RBC % 0.0 /100WBC 04/23/20 04:35 Nucleated RBCs # 0 K/uL 04/23/20 04:35 COVID-19 (LARISA) NEGATIVE (NEGATIVE) 04/23/20 04:50 Blood Type B POSITIVE 04/23/20 04:35 Antibody Screen NEGATIVE 04/23/20 04:35 - Allergies Allergies/Adverse Reactions: Allergies Allergy/AdvReac Type Severity Reaction Status Date / Time lactose Allergy Indigestion Verified 04/11/18 04:34 - Acknowledgements Anesthesia Type Planned: Epidural Pt an Appropriate Candidate for the Planned Anesthesia: Yes Alternatives and Risks of Anesthesia Discussed w Pt/Guardian: Yes Pt/Guardian Understands and Agrees with Anesthesia Plan: Yes 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: - Past Surgical History HEENT Surgical History: Reports: Oral Surgery, Other (See Below) Other HEENT Surgeries/Procedures: widom teeth extraction - HOME MEDS Home Medications: Home Meds Pnv No.95/Ferrous Fum/Folic AC [ Tablet] 04/07/17 [History] - CURRENT (IN HOUSE) MEDS Current Meds: Current Medications Butorphanol Tartrate (Stadol) 1 mg IVPUSH Q1H PRN PRN Reason: Pain Carboprost Tromethamine (Hemabate Ds) 250 mcg IM ASDIRECTED PRN PRN Reason: Post Hemorrhage Lactated Ringer's (Ringers, Lactated) 1,000 mls @ 150 mls/hr IV ASDIRECTED AELIDA Oxytocin/Sodium Chloride (Oxytocin 30 Unit/500 Ml-Ns) 30 unit in 500 mls @ 999 mls/hr IV TITRATE ALEIDA Tranexamic Acid 1,000 mg/ (Sodium Chloride) 110 mls @ 660 mls/hr IV ONETIME PRN PRN Reason: Bleeding Lidocaine HCl (Xylocaine 1%) 50 ml INJECT ONETIME PRN PRN Reason: Laceration repair Methylergonovine Maleate (Methergine) 0.2 mg IM ASDIRECTED PRN PRN Reason: Post Hemorrhage Misoprostol (Cytotec) 200 mcg PO ONETIME PRN PRN Reason: Post Hemorrhage Sodium Chloride (Saline Flush) 10 ml FLUSH ASDIRECTED PRN PRN Reason: Keep Vein Open Sodium Chloride (Saline Flush) 2.5 ml FLUSH ASDIRECTED PRN PRN Reason: Keep Vein Open Sodium Chloride (Normal Saline) 10 ml IV ASDIRECTED PRN PRN Reason: IV Use Sterile Water (Sterile Water For Irrigation) 1,000 ml IRR ASDIRECTED PRN PRN Reason: delivery Discontinued Medications Fentanyl (Sublimaze) Confirm Administered Dose 100 mcg .ROUTE .STK-MED ONE Stop: 04/23/20 06:24 Ropivacaine (Naropin 0.2%) Confirm Administered Dose 100 mls @ as directed .ROUTE .STK-MED ONE Stop: 04/23/20 06:25
--- NOTE | 2020-04-23 06:52 | PCM.PRNOTE ---
- Free Text/Narrative Note: Anes NOte Patietn requests epidural for L&D. Sitting postion, level L3-L4 midline approach. Sterile technique. Chloraprep scrub to lumbar area. Sterile fenestrated drape applied. Epidural space easily achieved second attempt with ease using NILESH technique. NILESH at 3 cm. Cath threaded 6 cm with ease. Cath secured at skin at 9 cm. Test 0635 3 cc 1.5% lido with epi negative. 0638 Load 10 cc 0.2% ropivicaine with 1 mcg cc fentanyl in slow divided doses. 0641 Pump started with 90 cc same solution. Rate is 8 cc hr with 6 cc q 20 min prn bolus. Time with patient [id number] Goran Dubose X RAY DEVELOPER
[2020-04-23] MEDS ORDERED: Ibuprofen 400 MG Tab PO PRN (08:20)
[2020-04-23] MEDS ORDERED: Witch Hazel Medicated Pads 40/Jar TOP PRN (08:20)
[2020-04-23] MEDS ORDERED: Acetaminophen 500 MG Tab PO PRN (08:20)
[2020-04-23] MEDS ORDERED: Bisacodyl 10 MG Supp RECTAL PRN (08:20)
[2020-04-23] MEDS ORDERED: Lanolin 100% Cream 7 GM Tube TOP PRN (08:20)
[2020-04-23] MEDS ORDERED: Benzocaine/Menthol 20%-0.5% Spray 78 GM Cannister TOP PRN (08:20)
[2020-04-23] MEDS ORDERED: oxyCODONE 5 MG Tab PO PRN (08:20)
[2020-04-23] MEDS ORDERED: Docusate Sodium 100 MG Cap PO PRN (08:20)
--- NOTE | 2020-04-23 08:29 | PCM.OPNOTE ---
- General Post-Op/Procedure Note Date of Surgery/Procedure: 04/23/20 Operative Procedure(s): /1st MLL repaired Findings: Viable female 8, 8 weight 4200gm. Spontaneous delivery intact placenta with 3V cord Pre Op Diagnosis: 39/1 week IUP. Labor Post-Op Diagnosis: same Anesthesia Technique: Epidural, Local Primary Surgeon: Tricia Lazaro EBL in mLs: 250 Complications: none known Condition: Stable Free Text/Narrative:: Intake & Output 04/22/20 04/23/20 04/23/20 22:59 06:59 14:59 Intake Total 100 Balance 100 Dictation [id number]
[2020-04-23] MEDS: Ibuprofen 800 MG Tab PO PRN ×2 (09:36→18:09)
--- NOTE | 2020-04-23 13:35 | OR ---
SURGEON: Tricia Lazaro M.D. DATE OF PROCEDURE: 04/23/2020 PREOPERATIVE DIAGNOSES: 1. A 39-1/7 weeks' intrauterine . 2. Active labor. POSTOPERATIVE DIAGNOSES: 1. A 39-1/7 weeks' intrauterine . 2. Active labor. PROCEDURE: Spontaneous vaginal delivery with first-degree midline laceration repaired. PRIMARY SURGEON: Tricia Lazaro MD ANESTHESIA: Epidural with local. COMPLICATIONS: None known. FINDINGS: Viable female. score of 8 at one minute and 8 at five minutes. Weight of 4200 g. Spontaneous delivery, intact placenta, 3-vessel cord. DISPOSITION: to nursery, mom in LDRP. PROCEDURE DETAILS: Behzad is a 25-year-old, G2, P1, at 39-1/7 weeks' gestational age who presented on the morning of 04/23/2020 with regular contractions, initially found to be 4 to 5 cm. Admitted, routine labs drawn, IV hydration was initiated. She underwent regional anesthesia in the form of epidural. At that point, she was found to be 8 to 9 cm, increasingly uncomfortable, and progressed to complete. Had spontaneous rupture of membranes and progressed to a +2 station with urge to push. I was called for delivery. Upon my arrival, the patient was placed in modified dorsal lithotomy position, was prepped and draped in the usual aseptic manner. Continued with pushing efforts. With the next two contractions, was able to deliver the 's head atraumatically spontaneously, followed by anterior shoulder, posterior shoulder, and the remainder of the body without difficulty. The infant's oropharynx and nares were bulb suctioned. The cord was clamped x2 and cut after a delay. Cord arterial, cord venous, cord blood sampling obtained. Light pressure was applied while the placenta was delivered spontaneously intact. Vigorous fundal uterine massage was then applied while 30 units of Pitocin was delivered in 500 mL of IV fluid. Upon inspection of cervix, vaginal sidewall, and perineum, there was found to be a first-degree midline laceration, repaired. Uterus remained firm. Hemostasis evident. Sponge, instrument, and needle count was correct. The patient remained in LDRP, infant to nursery. MAI / PEMA /[id number]
[2020-04-23] MEDS: Acetaminophen 500 MG Tab PO PRN (20:24)
[2020-04-24] MEDS: Acetaminophen 500 MG Tab PO PRN ×2 (00:38→04:41)
[2020-04-24] MEDS: Ibuprofen 800 MG Tab PO PRN ×2 (00:38→06:46)
--- NOTE | 2020-04-24 08:47 | PCM48HPAN ---
Post Anesthesia Note - EVALUATION WITHIN 48HRS OF ANESTHETIC Vital Signs in Normal Range: Yes Patient Participated in Evaluation: Yes Respiratory Function Stable: Yes Airway Patent: Yes Cardiovascular Function Stable: Yes Hydration Status Stable: Yes Pain Control Satisfactory: Yes Nausea and Vomiting Control Satisfactory: Yes Mental Status Recovered: Yes Vital Signs: Last Vital Signs Temp 97.1 F 04/24/20 04:00 Pulse 78 04/24/20 04:00 Resp 16 04/24/20 04:00 BP 112/67 04/24/20 04:00 Pulse Ox 95 04/24/20 04:00 - COMMENTS/OBSERVATIONS Free Text/Narrative:: The patient reports that the labor epidural did not work in reducing her labor pain. Discussed how unfortunately sometimes labor epidurals don't always work.
[2020-04-24 13:30] VITALS: BP 104/55; PULSE 96
--- NOTE | 2020-04-24 19:15 | PCM.PNPP ---
- General Info Date of Service: 04/24/20 Functional Status: Reports: Pain Controlled, Tolerating Diet, Ambulating, Urinating - Review of Systems General: Reports: No Symptoms HEENT: Reports: No Symptoms Pulmonary: Reports: No Symptoms Cardiovascular: Reports: No Symptoms Gastrointestinal: Reports: No Symptoms Genitourinary: Reports: No Symptoms Musculoskeletal: Reports: No Symptoms Skin: Reports: No Symptoms Neurological: Reports: No Symptoms Psychiatric: Reports: No Symptoms - General Info Date of Service: 04/24/20 - Patient Data Vital Signs - Most Recent: Last Vital Signs Temp 36.1 C 04/24/20 08:40 Pulse 96 04/24/20 08:40 Resp 18 04/24/20 08:40 BP 104/55 L 04/24/20 08:40 Pulse Ox 96 04/24/20 08:40 Weight - Most Recent: 88.451 kg Lab Results - Last 24 Hours: Laboratory Results - last 24 hr 04/24/20 Range/Units 06:02 Hgb 11.2 L (12.0-16.0) g/dL Hct 34.5 L (36.0-46.0) % Med Orders - Current: Current Medications Discontinued Medications Acetaminophen (Tylenol Extra Strength) 500 mg PO Q4H PRN PRN Reason: Pain Acetaminophen (Tylenol Extra Strength) 1,000 mg PO Q4H PRN PRN Reason: Pain Last Admin: 04/24/20 04:41 Dose: 1,000 mg Documented by: Benzocaine/Menthol (Dermoplast Pain Relief 20%-0.5% [place]) 78 gm TOP ASDIRECTED PRN PRN Reason: Perineal Comfort Measure Last Admin: 04/23/20 11:25 Dose: 1 canister Documented by: Bisacodyl (Dulcolax) 10 mg RECTAL ONETIME PRN PRN Reason: Constipation Butorphanol Tartrate (Stadol) 1 mg IVPUSH Q1H PRN PRN Reason: Pain Carboprost Tromethamine (Hemabate Ds) 250 mcg IM ASDIRECTED PRN PRN Reason: Post Hemorrhage Docusate Sodium (Colace) 100 mg PO BID PRN PRN Reason: Constipation Emollient Ointment (Lansinoh Hpa) 0 gm TOP ASDIRECTED PRN PRN Reason: Sore Nipples Fentanyl (Sublimaze) Confirm Administered Dose 100 mcg .ROUTE .STK-MED ONE Stop: 04/23/20 06:24 Fentanyl (Sublimaze) Confirm Administered Dose 100 mcg .ROUTE .[facility]-MED ONE Stop: 04/23/20 07:55 Lactated Ringer's (Ringers, Lactated) 1,000 mls @ 150 mls/hr IV ASDIRECTED [facility] Last Admin: 04/23/20 07:17 Dose: 999 mls/hr Documented by: Oxytocin/Sodium Chloride (Oxytocin 30 Unit/500 Ml-Ns) 30 unit in 500 mls @ 999 mls/hr IV TITRATE [facility] Last Admin: 04/23/20 07:52 Dose: 500 mls/hr Documented by: Tranexamic Acid 1,000 mg/ (Sodium Chloride) 110 mls @ 660 mls/hr IV ONETIME PRN PRN Reason: Bleeding Ropivacaine (Naropin 0.2%) Confirm Administered Dose 100 mls @ as directed .ROUTE .[facility] ONE Stop: 04/23/20 06:25 Ibuprofen (Motrin) 400 mg PO Q4H PRN PRN Reason: Pain Ibuprofen (Motrin) 800 mg PO Q6H PRN PRN Reason: Pain Last Admin: 04/24/20 06:46 Dose: 800 mg Documented by: Lidocaine HCl (Xylocaine 1%) 50 ml INJECT ONETIME PRN PRN Reason: Laceration repair Last Admin: 04/23/20 07:58 Dose: 50 ml Documented by: Methylergonovine Maleate (Methergine) 0.2 mg IM ASDIRECTED PRN PRN Reason: Post Hemorrhage Misoprostol (Cytotec) 200 mcg PO ONETIME PRN PRN Reason: Post Hemorrhage Oxycodone HCl (Oxycodone) 5 mg PO Q2H PRN PRN Reason: Pain Sodium Chloride (Saline Flush) 10 ml FLUSH ASDIRECTED PRN PRN Reason: Keep Vein Open Sodium Chloride (Saline Flush) 2.5 ml FLUSH ASDIRECTED PRN PRN Reason: Keep Vein Open Sodium Chloride (Normal Saline) 10 ml IV ASDIRECTED PRN PRN Reason: IV Use Sterile Water (Sterile Water For Irrigation) 1,000 ml IRR ASDIRECTED PRN PRN Reason: delivery Witch Venessa (Tucks) 1 pad TOP ASDIRECTED PRN PRN Reason: comfort care Last Admin: 04/23/20 09:36 Dose: 1 tub Documented by: - Interaction Support Person: - Recovery Exam Fundal Tone: Firm Fundal Level: 1 Fingerbreadths Below Umbilicus Fundal Placement: Midline Lochia Amount: Scant Lochia Color: Rubra/Red Perineum Description: Edematous, Other (see below) Other Perinuem Description: 1st degree laceration Episiotomy/Laceration: Approximated Bladder Status: Voiding Urinary Elimination: Voided - Exam General: Alert HEENT: Pupils Equal Neck: Supple Lungs: Clear to Auscultation, Normal Respiratory Effort Cardiovascular: Regular Rate, Regular Rhythm GI/Abdominal Exam: Normal Bowel Sounds Extremities: Normal Inspection Neurological: No New Focal Deficit Psy/Mental Status: Alert - Problem List & Annotations (1) Vaginal delivery SNOMED Code(s): 864864390 Code(s): O80 - ENCOUNTER FOR FULL-TERM UNCOMPLICATED DELIVERY Status: Acute - Problem List Review Problem List Initiated/Reviewed/Updated: Yes - Assessment Assessment:: 25yo s/p PPD 1 , , ambulating , tolerating diet Normal lochia - Plan Plan:: Discharge home
== END 2020-04-24 11:30 | disposition home or self-care (01) | DRG 807 ==
LOC: MW.OBCHECK 03:52 → MW.OB 03:53 → MW.OBCHECK 05:19 → MW.OB 05:19 → OBSVTOIN 07:52 → MW.OB 21:30
PROVIDERS: ADMIT Obstetrics & Gynecology; ATTEND Obstetrics & Gynecology
PROC: 10E0XZZ Delivery of Products of Conception, External Approach (ICD-10-PCS; principal; 2020-04-23)
PROC: 0HQ9XZZ Repair Perineum Skin, External Approach (ICD-10-PCS; 2020-04-23)
PROC: 3E0R3BZ Introduction of Anesthetic Agent into Spinal Canal, Percutaneous Approach (ICD-10-PCS; 2020-04-23)
PROC: 00HU33Z Insertion of Infusion Device into Spinal Canal, Percutaneous Approach (ICD-10-PCS; 2020-04-23)
DX: O70.0 First degree perineal laceration during delivery (principal); Z37.0 Single live birth; Z3A.39 39 weeks gestation of pregnancy; Z11.59 Encounter for screening for other viral diseases
CPT/HCPCS: 01967; 36415; 51702; 59025; 59409; 82803; 85014; 85018; 85027; 86592; 86850; 86900; 86901; A9270-GY; J2001; J2590; J7120; U0002